=== PATIENT | male | born 1995 | race Caucasian/White ===

== ENCOUNTER 2019-04-04 10:00 | Emergency (ER) | payer OTHER ==
[2019-04-04] MEDS ORDERED: TETRACAINE HCL 0.5% OPH SOLN 4 ML OU ONE (10:13)
--- NOTE | 2019-04-04 10:17 | ER Document Report ---
HPI - HPI Time Seen by Provider: 04/04/19 10:08 Pain Level: 4 Context: Patient is a 23-year-old male who presents to the emergency department with a chief complaint of bilateral eye burning. Patient states that he put his contact lenses in yesterday and his eyes started burning. He then took them out and his eyes continued to burn. Patient is visiting from [place]. He has a history of allergies and asthma. He takes Zyrtec on a daily basis and just recently started taking his fluticasone. - CONSTITUTIONAL Constitutional: DENIES: Fever, Chills - EENT EENT: REPORTS: Eye problems - redness; burning. DENIES: Sore Throat, Ear Pain - NEURO Neurology: REPORTS: Vision blurred. DENIES: Headache, Weakness, Dizzinesss / Vertigo - CARDIOVASCULAR Cardiovascular: DENIES: Chest pain - RESPIRATORY Respiratory: DENIES: Trouble Breathing, Coughing - GASTROINTESTINAL Gastrointestinal: DENIES: Abdominal Pain - MUSCULOSKELETAL Musculoskeletal: DENIES: Extremity pain, Back Pain - DERM Skin Color: Normal Skin Problems: None Past Medical History - General Information source: Patient - Social History Smoking Status: Never Smoker Chew tobacco use (# tins/day): No Frequency of alcohol use: Social Drug Abuse: Marijuana Family History: Reviewed & Not Pertinent Patient has suicidal ideation: No Patient has homicidal ideation: No Vertical Provider Document - CONSTITUTIONAL Agree With Documented VS: Yes Exam Limitations: No Limitations General Appearance: No Apparent Distress - INFECTION CONTROL TRAVEL OUTSIDE OF THE [place] IN LAST 30 DAYS: No - HEENT HEENT: Atraumatic, Conjuctival Injection, Normocephalic, PERRLA - NECK Neck: Normal Inspection - RESPIRATORY Respiratory: No Respiratory Distress - CARDIOVASCULAR Cardiovascular: Regular Rate, Regular Rhythm Pulses: Normal: Radial - MUSCULOSKELETAL/EXTREMETIES Musculoskeletal/Extremeties: FROM - NEURO Level of Consciousness: Awake, Alert, Appropriate Motor/Sensory: No Motor Deficit, No Sensory Deficit - DERM Integumentary: Warm, Dry, No Rash Course - Re-evaluation Re-evalutation: 04/04/19 10:50 Eye exam with Griggs lamp shows corneal irritation to the left side. No corneal abrasion noted on both sides. Patient will be sent home with Polytrim eyedrops and was instructed to use them if he has purulent drainage from his eyes in the next couple of days. He also be sent home with a prescription for ketorolac drops. Negative Floyd sign. Pupils equal and reactive to light. He will follow-up with the basic sciences professor as needed. Follow-up precautions were given. Verbal discharge instructions were given to the patient. They verbalized understanding. They are stable for discharge. - Vital Signs Vital signs: Temp Pulse Resp BP Pulse Ox 97.9 F 58 L 24 H 146/91 H 100 04/04/19 10:03 04/04/19 10:03 04/04/19 10:03 04/04/19 10:03 04/04/19 10:03 Discharge - Discharge Clinical Impression: Itchy, watery, and red eye Allergic conjunctivitis Qualifiers: Laterality: bilateral Qualified Code(s): H10.13 - Acute atopic conjunctivitis, bilateral Condition: Stable Disposition: HOME, SELF-CARE Instructions: Conjunctivitis, Allergic, Eyedrop Use ([facility]) Additional Instructions: You were seen today in the emergency department for eye redness and irritation. You are being sent with a prescription for ketorolac eyedrops. These drops are for pain. Use them as directed. Your eye exam showed that you had irritation to your left eye, but no abrasion. Please place 1 drop to both eyes 4 times a day while awake. You are also being started on Singulair. Follow-up with ophthalmology as needed. Please follow-up with your primary care provider as needed. Prescriptions: Montelukast Sodium [Singulair 10 mg Tablet] 10 mg PO QHS #30 tablet Ketorolac Tromethamine 5 ml OU ASDIR PRN #1 bottle PRN Reason: Referrals: ZAFAR VALENTIN MD [ACTIVE STAFF] - Follow up as needed
[2019-04-04] MEDS ORDERED: POLYMYXIN B SULFATE/TMP OPH SOLN (10 ML/ER DISP) OU ONE (10:49)
[2019-04-04] MEDS ORDERED: KETOROLAC TROMETHAMINE 0.45% 4 DROP/0.4 ML DROPERETTE OU ONE (10:51)
[2019-04-04] MEDS ORDERED: MONTELUKAST SODIUM 10 MG TABLET PO ONE (10:58)
[2019-04-04 11:13] VITALS: BP 132/80
== END 2019-04-04 11:13 | disposition home or self-care (01) ==
LOC: ER 10:00
DX: H10.13 Acute atopic conjunctivitis, bilateral (principal); J45.909 Unspecified asthma, uncomplicated; Z79.899 Other long term (current) drug therapy; F12.10 Cannabis abuse, uncomplicated
CPT/HCPCS: 99282; J3490 ×2